=== PATIENT | male | born 1960 | race Caucasian/White ===

== ENCOUNTER 2017-06-04 12:35 | Emergency (ER) | payer SELFPAY ==
[~2017-06-04] VITALS: Ht 170.2 cm; Wt 68.0 kg
[2017-06-04 12:37] VITALS: BP 154/98
[2017-06-04] MEDS ORDERED: KETOROLAC 30MG/ML VIAL IV STA (12:39)
[2017-06-04] MEDS ORDERED: SODIUM CHLORIDE 0.9% 1,000 ML IV ONE (12:39)
[2017-06-04 13:00] LABS: BASOPHILS % 1.2 % (0.0-2.0); EOSINOPHILS % 0.7 % (0.0-5.0); HEMATOCRIT. 45.4 % (42.0-52.0); HEMOGLOBIN. 15.4 g/dL (14.0-18.0); LYMPHOCYTES % 56.7 % (20.0-50.0); MEAN CORPUSCULAR HEMOGLOBIN 31.4 pg (28.0-32.0); MEAN CORPUSCULAR VOLUME 92.7 fL (80.0-94.0); MEAN PLATELET VOLUME 9.6 fl (7.4-10.4); MONOCYTES % 10.1 % (2.0-8.0); NEUTROPHILS % 31.3 % (40.0-76.0); PLATELET 222 x1000/uL (130-400); RED CELL DISTRIBUTION WIDTH 13.6 % (11.6-14.6)
== END 2017-06-04 14:25 | disposition left against medical advice (07) ==
LOC: ER 12:39
DX: R07.9 Chest pain, unspecified (principal); I10 Essential (primary) hypertension; F15.10 Other stimulant abuse, uncomplicated
CPT/HCPCS: 36415; 85025; 93005; 96361; 96374; 99284; J1885; J7030

== ENCOUNTER 2019-06-26 16:41 | Emergency (ER) | payer MEDICAID ==
[~2019-06-26] VITALS: Ht 170.2 cm; Wt 91.0 kg
[2019-06-26 16:44] VITALS: BP 168/96
== END 2019-06-26 21:18 | disposition left against medical advice (07) ==
LOC: ER 16:41
DX: R10.9 Unspecified abdominal pain (principal); Z53.21 Procedure and treatment not carried out due to patient leaving prior to being seen by health care provider

== ENCOUNTER 2020-07-28 02:42 | Emergency (ER) | payer OTHER ==
[~2020-07-28] VITALS: Ht 165.1 cm; Wt 76.0 kg
[~2020-07-28 02:42] MED LIST: DILT120C88 MT; THIA100T72 PO
[2020-07-28] MEDS ORDERED: LORAZEPAM 2MG/ML CPJ IV ONE (03:15)
[2020-07-28 03:35] LABS: BASOPHILS % 1.4 % (0.0-2.0); EOSINOPHILS % 0.5 % (0.0-5.0); HEMATOCRIT. 46.9 % (42.0-52.0); HEMOGLOBIN. 15.9 g/dL (14.0-18.0); LYMPHOCYTES % 36.9 % (20.0-50.0); MEAN CORPUSCULAR HEMOGLOBIN 31.4 pg (28.0-32.0); MEAN CORPUSCULAR VOLUME 92.2 fL (80.0-94.0); MEAN PLATELET VOLUME 8.8 fl (7.4-10.4); MONOCYTES % 10.2 % (2.0-8.0); PLATELET 177 x1000/uL (130-400); RED BLOOD CELL COUNT 5.08 mill/uL (4.7-6.1); RED CELL DISTRIBUTION WIDTH 14.2 % (11.6-14.6)
[2020-07-28 03:42] LABS: CHLORIDE 99 mEq/L (98-107)
[2020-07-28 04:15] LABS: *BARBITURATES SCREEN URINE NEGATIVE (NEGATIVE)
[2020-07-28 04:16] LABS: *AMPHETAMINES SCREEN URINE PRESUMTIVE POSITIVE (NEGATIVE); *BENZODIAZEPINES SCREEN URINE PRESUMTIVE POSITIVE (NEGATIVE); *COCAINE SCREEN URINE NEGATIVE (NEGATIVE); CANNABINOID URINE SCREEN NEGATIVE (NEGATIVE); METHADONE URINE SCREEN NEGATIVE (NEGATIVE); OPIATES URINE SCREEN NEGATIVE (NEGATIVE); PHENCYCLIDINE URINE SCREEN NEGATIVE (NEGATIVE)
[2020-07-28] MEDS ORDERED: SODIUM CHLORIDE 0.9% 1,000 ML IV ONE (05:00)
[2020-07-28 06:10] VITALS: BP 171/111
[2020-07-28] MEDS ORDERED: IOHEXOL-350 100 ML BOTTLE ONE (06:50)
== END 2020-07-28 06:38 | disposition home or self-care (01) ==
LOC: ER 02:42
DX: T43.621A Poisoning by amphetamines, accidental (unintentional), initial encounter (principal); R07.89 Other chest pain; F15.188 Other stimulant abuse with other stimulant-induced disorder; F16.10 Hallucinogen abuse, uncomplicated; F13.10 Sedative, hypnotic or anxiolytic abuse, uncomplicated; I10 Essential (primary) hypertension; Y92.89 Other specified places as the place of occurrence of the external cause
CPT/HCPCS: 36415; 71045; 71275; 80053; 80305; 83880; 84484; 85025; 85379; 93005; 96361; 96374; 99285; J2060; J7030; Q9967

== ENCOUNTER 2020-07-28 06:40 | Emergency (ER) | payer OTHER ==
[~2020-07-28] VITALS: Ht 165.1 cm; Wt 76.0 kg
[2020-07-28] MEDS ORDERED: SODIUM CHLORIDE 0.9% 1,000 ML IV ONE (07:45)
[2020-07-28] MEDS ORDERED: LORAZEPAM 2MG/ML CPJ IV ONE (07:45)
[2020-07-28 08:13] LABS: BASOPHILS % 0.7 % (0.0-2.0); EOSINOPHILS % 0.4 % (0.0-5.0); HEMATOCRIT. 44.5 % (42.0-52.0); HEMOGLOBIN. 15.4 g/dL (14.0-18.0); LYMPHOCYTES % 34.8 % (20.0-50.0); MEAN CORPUSCULAR HEMOGLOBIN 31.6 pg (28.0-32.0); MEAN CORPUSCULAR VOLUME 91.2 fL (80.0-94.0); MEAN PLATELET VOLUME 8.7 fl (7.4-10.4); MONOCYTES % 9.1 % (2.0-8.0); PLATELET 198 x1000/uL (130-400); RED BLOOD CELL COUNT 4.88 mill/uL (4.7-6.1); RED CELL DISTRIBUTION WIDTH 13.9 % (11.6-14.6)
[2020-07-28 08:18] LABS: CHLORIDE 98 mEq/L (98-107)
[2020-07-28 09:41] VITALS: BP 193/124
== END 2020-07-28 09:44 | disposition home or self-care (01) ==
LOC: ER 06:40
DX: R07.89 Other chest pain (principal); R00.0 Tachycardia, unspecified; R74.8 Abnormal levels of other serum enzymes; E87.6 Hypokalemia; I10 Essential (primary) hypertension; F15.188 Other stimulant abuse with other stimulant-induced disorder
CPT/HCPCS: 36415; 71045; 80053; 83880; 84484; 85025; 93005; 96374; 99285; J2060; J7030